=== PATIENT | male | born 1975 | race Caucasian/White ===

== ENCOUNTER 2017-09-30 11:05 | Emergency (ER) | payer MEDICAID ==
[2017-09-30] MEDS: KETOROLAC 15 MG INJ IM (11:58)
[2017-09-30] MEDS: HYDROCODONE/APAP (5/325) TAB PO (11:58)
== END 2017-09-30 12:43 | disposition home or self-care (01) ==
LOC: FTE 11:05
DX: M54.42 Lumbago with sciatica, left side (principal); E11.9 Type 2 diabetes mellitus without complications
CPT/HCPCS: 96372; 99284-25